=== PATIENT | female | born 1995 | race Caucasian/White ===

== ENCOUNTER 2020-02-10 17:58 | Inpatient (IN) | payer BC ==
[~2020-02-10] VITALS: Ht 165.1 cm; Wt 77.0 kg
[2020-02-10] MEDS ORDERED: LIDOCAINE 1%/EPI 1:100,000 20 ML VIAL. ONE (18:13)
[2020-02-10 18:39] LABS: BASO # 0.1 x10^3/uL (0.0-0.2); BASO % 1 % (0-3); EOS # 0.2 x10^3/uL (0.0-0.7); EOS % 1 % (0-3); HEMATOCRIT 39.4 % (36.0-47.0); HEMOGLOBIN 13.1 g/dL (12.0-15.5); LYMPH # 5.5 x10^3/uL (1.0-4.8); LYMPH % 46 % (24-48); MEAN CORPUSCULAR HEMOGLOBIN 28 pg (25-35); MEAN CORPUSCULAR HGB CONC 33 g/dL (31-37); MEAN CORPUSCULAR VOLUME 84 fL (79-100); MONO # 0.9 x10^3/uL (0.0-1.1); MONO % 7 % (0-9); NEUT # 5.2 x10^3/uL (1.8-7.7); NEUT % 44 % (31-73); PLATELET COUNT 374 x10^3/uL (140-400); RED BLOOD COUNT 4.67 x10^6/uL (3.50-5.40); RED CELL DISTRIBUTION WIDTH 13.7 % (11.5-14.5); WHITE BLOOD COUNT 11.8 x10^3/uL (4.0-11.0)
[2020-02-10] MEDS ORDERED: MORPHINE SULFATE 2 MG/ML VIAL. IV ONE (18:45)
[2020-02-10] MEDS ORDERED: ONDANSETRON PF 4 MG/2 ML VIAL. IVP ONE (18:45)
[2020-02-10 18:46] LABS: CALCIUM 8.5 mg/dL (8.5-10.1); CREATININE 0.8 mg/dL (0.6-1.0); GFR 88.1; POTASSIUM 3.2 mmol/L (3.5-5.1)
[2020-02-10 18:55] LABS: PROTHROMBIN TIME PATIENT 12.6 SEC (11.7-14.0)
[2020-02-10] MEDS ORDERED: TRANEXAMIC ACID 1,000 MG/10 ML VIAL. TOP ONE (19:00)
[2020-02-10] MEDS ORDERED: IOHEXOL 300 MG/ML 100ML VIAL. IV ONE (19:15)
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
[2020-02-10] MEDS ORDERED: CONTRAST GIVEN. MC PRN (19:30)
[2020-02-10] MEDS ORDERED: NEOMY/BACITR/POLYMYXIN OINT PACKET. TP ONE ×2 (20:21→21:00)
[2020-02-10] MEDS ORDERED: MORPHINE SULFATE 2 MG/ML VIAL. IV PRN (20:30)
[2020-02-10] MEDS ORDERED: ACETAMINOPHEN 325 MG TABLET. PO PRN (20:30)
[2020-02-10] MEDS ORDERED: ONDANSETRON PF 4 MG/2 ML VIAL. IV PRN (20:30)
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
[2020-02-10] MEDS ORDERED: DIPH,PERTUSS(ACELL),TET VAC/PF 0.5 ML SYRINGE. VAX IM ONE (21:00)
[2020-02-10 22:05] VITALS: BP 143/86
--- NOTE | 2020-02-10 22:05 | NUR ---
pt admitted to room 269 from ED at this time, able to ambulate to bathroom then back to bed upon arrival. pt is alert/oriented x4, VSS on room air, able to answer all admission questions without difficulty. pt oriented to room, unit routines, plan of care, call light and bathroom privileges; pt voices understanding. will pass on in report, will continue to closely monitor.
[2020-02-10] MEDS ORDERED: LABETALOL 20 MG/4 ML DISP.SYRIN. IVP PRN (22:15)
[2020-02-10 23:00] VITALS: BP 135/85
[2020-02-11] VITALS (16 sets, daily range): BP systolic 110–151; BP diastolic 56–83
[2020-02-11 05:59] LABS: BASO % 0 % (0-3); EOS % 0 % (0-3); HEMOGLOBIN 12.1 g/dL (12.0-15.5); LYMPH # 1.8 x10^3/uL (1.0-4.8); LYMPH % 11 % (24-48); MEAN CORPUSCULAR HEMOGLOBIN 29 pg (25-35); MEAN CORPUSCULAR HGB CONC 34 g/dL (31-37); MEAN CORPUSCULAR VOLUME 85 fL (79-100); MONO # 1.2 x10^3/uL (0.0-1.1); MONO % 7 % (0-9); NEUT # 13.8 x10^3/uL (1.8-7.7); NEUT % 82 % (31-73); PLATELET COUNT 304 x10^3/uL (140-400); RED BLOOD COUNT 4.25 x10^6/uL (3.50-5.40); RED CELL DISTRIBUTION WIDTH 13.5 % (11.5-14.5); WHITE BLOOD COUNT 16.8 x10^3/uL (4.0-11.0)
[2020-02-11 06:10] LABS: ALBUMIN 3.6 g/dL (3.4-5.0); ALBUMIN/GLOBULIN RATIO 1.2 (1.0-1.7); CALCIUM 8.6 mg/dL (8.5-10.1); CREATININE 0.8 mg/dL (0.6-1.0); GFR 88.1; POTASSIUM 3.7 mmol/L (3.5-5.1); TOTAL BILIRUBIN 0.6 mg/dL (0.2-1.0); TOTAL PROTEIN 6.5 g/dL (6.4-8.2)
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
[2020-02-11 10:47] LABS: % BANDS 1 % (0-9); % LYMPHS 15 % (24-48); % MONOS 8 % (0-10); % SEGS 76 % (35-66)
[2020-02-11 10:48] LABS: PLT ESTIMATE ADEQUATE (ADEQUATE)
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
--- NOTE | 2020-02-11 15:45 | NUR ---
Pt received clothes from family and was helped to change. Discharge info was reviewed with pt and pt's boyfriend at front entrance. Pt was discharged per wheelchair to family with belongings and discharge info.
== END 2020-02-11 15:45 | disposition home or self-care (01) | DRG 604 ==
LOC: ER 17:58 → CVICU 20:15
PROVIDERS: ADMIT Family Medicine; ATTEND Family Medicine
DX: S01.81XA Laceration without foreign body of other part of head, initial encounter (principal); S06.5X0A Traumatic subdural hemorrhage without loss of consciousness, initial encounter; V86.55XA Driver of 3- or 4- wheeled all-terrain vehicle (ATV) injured in nontraffic accident, initial encounter; Y93.89 Activity, other specified; Y92.89 Other specified places as the place of occurrence of the external cause; Y99.8 Other external cause status
CPT/HCPCS: 36415; 70450; 71260; 72125; 73030; 73060; 73090; 73552; 74177; 80048; 80053; 85007; 85025; 85610; 85730; 86850; 86900; 86901; 90471; 90715; G0480; J3490; Q9967; G0378